=== PATIENT | female | born 1960 | race Caucasian/White ===

== ENCOUNTER 2017-04-17 21:03 | Emergency (ER) | payer OTHER ==
[~2017-04-17] VITALS: Ht 180.3 cm; Wt 49.9 kg
[~2017-04-17 21:03] MED LIST: PROAIR HFA8.5 GM INH; TESSALON PERLE100 M1 PO; ZITHROMAX250 M2 PO
--- NOTE | 2017-04-17 21:43 | ED UPPER/LOWER EXTREMITY COMPL ---
History of Present Illness General Chief Complaint: Foot or Ankle Injury Stated Complaint: LEFT FOOT Source: patient Exam Limitations: no limitations Vital Signs & Intake/Output Vital Signs & Intake/Output Vital Signs Date Time Temp Pulse Resp B/P B/P Pulse O2 O2 Flow FiO2 Mean Ox Delivery Rate 04/17 2240 Room Air 04/17 2240 98.1 90 14 110/62 99 Room Air 04/17 2114 97.9 92 18 105/66 100 Room Air Allergies Coded Allergies: Sulfa (Sulfonamide Antibiotics) (Intermediate, HIVES 08/18/16) Uncoded Allergies: PCN (Intermediate, HIVES 08/18/16) Reconcile Medications Albuterol Sulfate (Proair Hfa) 90 MCG HFA.AER.AD 2 PUF INH Q4-6 PRN PRN SOB Azithromycin (Zithromax) 250 MG TABLET 1 DP PO AD BRONCHITIS 2 the first day followed by 1 for days 2-5 Benzonatate (Tessalon Perle) 100 MG CAPSULE 1 CAP PO TID PRN COUGH Ketorolac Tromethamine 10 MG TABLET 1 TAB PO TID PRN PAIN RECEIVED IM IN ER Triage Note: RECEIVED 56 YO FEMALE C/O LEFT FOOT PAIN AND UNABLE TO BEAR WEIGHT ON LEFT FOOT, STARTED THIS AM.PT DOES NOT REMEMBER INJURING FOOT BUT REMEMBERS PAIN LAST NIGHT WHEN WALKING. PT WITH HX OF LEFT FOOT PAIN Triage Nurses Notes Reviewed? yes Onset: Gradual Duration: constant Timing: single episode today Severity: severe Severity Numbers: 7 HPI: Patient is 56-year-old female who presents emergency room with concerns of a gradual onset today of left top of the foot pain and swelling. Patient tried NSAIDs Motrin and Aleve with no relief of symptoms. Patient began using crutches this evening due to significant pain upon ambulation. Denies any mechanism of injury trauma or ETIOLOGY of pain. Denies any ankle pain shortness of breath fever chills. Patient does have a remote history of foot fracture however no surgical intervention was performed (OSIEL MCMAHON) Past History Travel History Traveled to [place] past 21 day No Medical History Any Pertinent Medical History? see below for history Neurological: NONE EENT: NONE Cardiovascular: MARPHINS SYNDROME WPW. MVP Respiratory: NONE Gastrointestinal: NONE Hepatic: NONE Renal: NONE Musculoskeletal: NONE Psychiatric: NONE Endocrine: NONE Blood Disorders: NONE Cancer(s): NONE Surgical History Surgical History: non-contributory Psychosocial History What is your primary language [place] Tobacco Use: Current Daily Use Daily Tobacco Use Amount/Type: => 5 Cigarettes daily Family History Hx Contributory? No (OSIEL MCMAHON) Review of Systems Review of Systems Constitutional: Reports: no symptoms. EENTM: Reports: no symptoms. Respiratory: Reports: no symptoms. Cardiovascular: Reports: no symptoms. Gastrointestinal/Abdominal: Reports: no symptoms. Genitourinary: Reports: no symptoms. Musculoskeletal: Reports: see HPI. Skin: Reports: no symptoms. Neurological/Psychological: Reports: no symptoms. Hematologic/Endocrine: Reports: no symptoms. Immunological: Reports: no symptoms. All Other Systems: Reviewed and Negative (OSIEL MCMAHON) Physical Exam Physical Exam General Appearance: no apparent distress, alert Neurologic/Tendon: normal sensation, normal motor functions, normal tendon functions, responds to pain, no evidence tendon injury, no pulse deficit Skin: intact, normal color, warm/dry Comments: Well-developed well-nourished no apparent distress. HEENT: Atraumatic, extraocular motion intact Neck: Supple, no lymphadenopathy Back: Nontender Respiratory: No respiratory distress Extremities: Left knee normal inspection nontender Left ankle normal inspection nontender Left foot noted dorsal aspect of foot swelling and point tenderness no erythema, PEDAL pulse +2 Dermatomes intact Neuro: Alert and oriented x3 Psych: Mood affect normal, normal memory normal judgment. (OSIEL MCMAHON) Progress Differential Diagnosis: arterial insufficiency, compartment syndrome, contusion, dislocation, DVT, fracture, gout, septic arthritis, sprain, tendon injury Plan of Care: Orders Procedure Date/time Status XRY-FOOT COMPLETE, LEFT 04/17 2119 Active Patient has no mechanism injury however does have left foot dorsal aspect of localized concern of inflammation and no concerns at this time of infection. Ti wrap was placed by me, pre-and post neurovascular was intact No osseous injury noted on x-rays. Patient was given copy of x-rays for follow- up with outsourced orthopedic doctor. (OSIEL MCMAHON) Diagnostic Imaging: Viewed by Me: Radiology Read. Radiology Impression: no acute abnormality, no fracture Comments: PATIENT: JACQUI NOLEN PRESENT AGE: 56 PATIENT ACCOUNT NO: [id number] : 60 LOCATION: [facility] ORDERING PHYSICIAN: ARMANDO ROPER MD SERVICE DATE: 07/ EXAM TYPE: RAD - XRY-FOOT COMPLETE, LEFT EXAMINATION: XR FOOT, LEFT CLINICAL INFORMATION: Pain. Rule out fracture. COMPARISON: None TECHNIQUE: AP, lateral, and oblique views of the left foot. FINDINGS: No acute fracture or dislocation is seen. Bony mineralization is normal. The joint spaces are preserved. No soft tissue abnormality is identified. IMPRESSION: No acute radiographic abnormality of the left foot. DICTATED BY: ARMANDO GAMEZ MD (OSIEL MCMAHON) Departure Departure Disposition: HOME OR SELF CARE Condition: Stable Clinical Impression Primary Impression: Left foot pain Referrals: DAV CHENG MD (PCP/Family) Additional Instructions: As discussed begin to elevate YOUR foot for swelling. Begin to use the Ti wrap provided to the emergency room for swelling. Begin the prescription of ketorolac for pain and inflammation. If symptoms worsen or if YOU DEVELOP new concerning symptom return to the emergency room. Continue using the crutches until he can walk without pain. Follow-up this week with your orthopedic doctor and provide x-ray copies provided to the emergency room for further evaluation treatment. Departure Forms: Customer Survey General Discharge Information Prescriptions: Current Visit Scripts Ketorolac Tromethamine 1 TAB PO TID PRN PAIN #15 TAB RECEIVED IM IN ER (OSIEL MCMAHON) PA/MARKETING SUPPORT SPECIALIST Co-Sign Statement Statement: ED Attending supervision documentation- [] I saw and evaluated the patient. I have also reviewed all the pertinent lab results and diagnostic results. I agree with the findings and the plan of care as documented in the PA's/MARKETING SUPPORT SPECIALIST's documentation. [X] I have reviewed the ED Record and agree with the PA's/MARKETING SUPPORT SPECIALIST's documentation. [] Additions or exceptions (if any) to the PAs/MARKETING SUPPORT SPECIALIST's note and plan are summarized below: [] (JUDSON KELLER,ARMANDO [place])
--- NOTE | 2017-04-17 22:13 | RADIOLOGY REPORT ---
EXAMINATION: XR FOOT, LEFT CLINICAL INFORMATION: Pain. Rule out fracture. COMPARISON: None TECHNIQUE: AP, lateral, and oblique views of the left foot. FINDINGS: No acute fracture or dislocation is seen. Bony mineralization is normal. The joint spaces are preserved. No soft tissue abnormality is identified. IMPRESSION: No acute radiographic abnormality of the left foot.
[2017-04-17] MEDS ORDERED: KETOROLAC TROME10 M1 PO (22:19)
[2017-04-17 22:40] VITALS: BP 110/62
== END 2017-04-17 22:41 ==
LOC: ERH 21:03
DX: M79.672 Pain in left foot (principal)
CPT/HCPCS: 73630-LT; 96372; J1885